=== PATIENT | female | born 2000 | race Asian ===

== ENCOUNTER 2022-02-04 11:36 | Emergency (ER) | payer OTHER, SELFPAY ==
[2022-02-04 11:38] VITALS: BP 111/73; PULSE 95; RESP 16; TEMP 35.6; O2SAT 99; BMI 17.6
--- NOTE | 2022-02-04 12:02 | ED_ITS ---
HPI - General Adult General Chief complaint: Neuro Symptoms/Altered Deficit Stated complaint: Had symptoms of a mini stroke this morning Time Seen by Provider: 02/04/22 11:48 History of Present Illness HPI narrative: This 21-year-old female comes in reporting brief episode of feeling weakness and tingling in her left upper extremity. She also had some altered sensation in her leg. This occurred upon awakening this morning. Within a few minutes her symptoms resolved. She states that she did have headache that occurred afterwards that was also rather brief. She does not report a history of migraines. She is not on any medications. She is otherwise in good health and feels back to normal currently. She called the nurse line and was instructed to come here for evaluation. She states that she is a student in college and reports that her sleep habits have been poor lately. She also reports some anxiety symptoms. Related Data Home Medications Medication Instructions Recorded Confirmed No Known Home Medications 02/04/22 02/04/22 Allergies Allergy/AdvReac Type Severity Reaction Status Date / Time No Known Drug Allergies Allergy Verified 02/04/22 11:46 Review of Systems Status of ROS: Reports: 10 or more systems reviewed and unremarkable except as noted in History and below Narrative: Constitutional: No fevers, no weight gain or loss. Eyes: No discharge. No vision changes. HENT: No congestion, no sore throat, no ear pain. Cardiovascular: No chest pain, no palpitations. Respiratory: No shortness of breath, no wheezes, no cough. Gastrointestinal: No abdominal pain, no vomiting, no diarrhea. Genitourinary: No dysuria, no hematuria. Musculoskeletal: Normal range of motion. Skin: No rashes, no pruritis. Neurological: No dizziness, speech change. She reports brief weakness in her left upper extremity with decreased sensation. There is also decreased sensation in her lower extremity briefly. Endo/Heme/Allergies: No bruising or bleeding. No polydipsia. Pysch: no suicidality, no anxiety, no insomnia. All other systems reviewed and are negative. Exam Narrative: Exam Narrative: Constitutional: Well-developed, well-nourished, no acute distress. HEENT: Normocephalic, atraumatic. Neck: Normal range of motion. Nontender. Supple. Heart: Regular. No murmurs. Normal rate. Intact distal pulses. Lungs: Clear to auscultation. No chest discomfort. No wheezes, rhonchi, or rales. Abdomen: Normal bowel sounds. Nontender. No rebound tenderness. Genitalia: Deferred. Back: No midline tenderness. Normal range of motion. Extremities: Normal range of motion. No injury. Skin: Intact. No rash. Warm. No erythema or pallor. Neurologic: No altered sensation. No weakness. Alert and oriented. No facial asymmetry. Tongue is midline. [id number] is normal. No pronator drift. She is ambulating and speaking normally. Psychiatric: No suicidality. No anxiety or depression. No insomnia. Nursing notes and vitals signs are reviewed. Const: Vital Signs, click to edit/add: Vital Signs - 24 hr 02/04/22 11:38 Temperature 96.1 F L Pulse Rate [Right Pulse Oximeter] 95 Respiratory Rate 16 Blood Pressure [Ri ght Upper Arm] 111/73 Pulse Oximetry 99 Oxygen Delivery Me thod Room Air Course Vital Signs Vital signs: Initial Vital Signs Temperature 96.1 F L 02/04/22 11:38 Temperature Source Temporal Artery Scan 02/04/22 11:38 Pulse Rate 95 02/04/22 11:38 Respiratory Rate 16 02/04/22 11:38 Blood Pressure 111/73 02/04/22 11:38 Blood Pressure Mean 85 02/04/22 11:38 Blood Pressure Position Sitting 02/04/22 11:38 Pulse Oximetry 99 02/04/22 11:38 Oxygen Delivery Method 02/04/22 11:38 Vital Signs Temperature 96.1 F L 02/04/22 11:38 Pulse Rate 95 02/04/22 11:38 Respiratory Rate 16 02/04/22 11:38 Blood Pressure 111/73 02/04/22 11:38 Pulse Oximetry 99 02/04/22 11:38 Oxygen Delivery Method 02/04/22 11:38 Temperature 96.1 F L 02/04/22 11:38 Pulse Rate 95 02/04/22 11:38 Respiratory Rate 16 02/04/22 11:38 Blood Pressure 111/73 02/04/22 11:38 Pulse Oximetry 99 02/04/22 11:38 Oxygen Delivery Method 02/04/22 11:38 Medical Decision Making MDM Narrative Medical decision making narrative: This patient comes in with rather brief symptoms as described above. She has a completely normal exam and feels back to normal at this time. I did discuss various causes of symptoms like this including stroke, TIA, complicated migraine, and nerve impingement. It seems more likely that this is not something that is worrisome. Her symptoms are completely back to normal. She may have had some basal spasm that caused temporary symptoms on her left side as described above. She did have a brief headache following these symptoms which could be typical of a migraine syndrome. Discharge Plan Discharge Clinical Impression: Migraine syndrome Patient Disposition: Home, Self-Care Condition: Improved Additional Instructions: Continue current plans. Follow up with MD or return if worsening or recurrent symptoms happening. Prescriptions: No Action No Known Home Medications Follow Up/Referrals: Provider,Not a Local [Primary Care Provider] - Stand Alone Forms: [employer] Info Instructions
== END 2022-02-04 13:05 | disposition home or self-care (01) ==
PROVIDERS: Emergency Provider Emergency Medicine Emergency Medical Services
DX: G43.909 Migraine, unspecified, not intractable, without status migrainosus (principal)
CPT/HCPCS: 99283; 99284

== ENCOUNTER 2022-08-04 11:36 | Outpatient (CLI) | payer OTHER, SELFPAY | END 2022-08-04 11:37 | disposition home or self-care (01) | LOC: AMB 08-06 12:47 | PROVIDERS: Visit Provider Family Medicine | DX: R10.9 Unspecified abdominal pain (principal); R30.0 Dysuria | CPT/HCPCS: A0425; A0427 ==

== ENCOUNTER 2022-08-04 12:04 | Emergency (ER) | payer OTHER, SELFPAY ==
[2022-08-04 12:14] VITALS: BP 104/74; PULSE 66; RESP 16; TEMP 36.3; O2SAT 100; BMI 17.5
[2022-08-04] MEDS: 0.9 % SODIUM CHLORIDE 1000 ml 1,000 ML IV (13:09)
[2022-08-04 13:16] LABS: Basophils Absolute Auto 0.05 K/uL (0.00-0.30); Basophils Percent Auto 0.5 % (0.0-3.0); Eosinophils Absolute Auto 0.09 K/uL (0.00-0.50); Hematocrit 36.5 % (33.0-51.0); Hemoglobin* 12.1 gm/dL (12.0-16.0); Immature Granulocytes Abs Auto 0.01 K/uL (0.00-0.30); Immature Granulocytes Pct Auto 0.1 %; Lymphocytes Percent Auto 8.9 % (20-44); Mean Corpuscular HGB Conc 33 gm/dL (32-36); Mean Corpuscular Hemoglobin 30 pg (26-34); Mean Corpuscular Volume 90 fL (80-100); Monocytes Percent Auto 3.8 % (0.0-11.0); Neutrophils Percent Auto 85.7 % (42.0-72.0); Platelet Count* 283 K/uL (140-440); Red Blood Count 4.04 m/uL (4.00-5.20); White Blood Count* 9.44 K/uL (4.50-11.00)
[2022-08-04 13:26] LABS: Slide Review Reflex No
[2022-08-04 13:29] LABS: Albumin* 4.3 g/dL (3.3-5.0); Chloride* 108 mmol/L (96-114)
[2022-08-04 13:30] LABS: Potassium* 3.9 mmol/L (3.6-5.1); Sodium* 137 mmol/L (135-149)
[2022-08-04 13:32] LABS: Bilirubin Direct* 0.2 mg/dL (0.0-0.5); Bilirubin Total* 0.5 mg/dL (0.1-1.5); Carbon Dioxide* 21 mmol/L (20-32); Creatinine* 0.4 mg/dL (0.5-1.5); Est. Creatinine Clearance* 168.68; Estimated Glomerular Filt Rate 145 ml/min; Total Protein* 7.2 g/dL (6.0-8.3)
[2022-08-04 13:33] LABS: Alanine Aminotransferase* 23 U/L (4-35); Alkaline Phosphatase* 45 U/L (40-150); Aspartate Amino Transferase* 24 U/L (12-35); Blood Urea Nitrogen* 10 mg/dL (5-24); Glucose* 91 mg/dL (60-115); Lipase* 34 U/L (23-300)
--- NOTE | 2022-08-04 14:03 | ED_ITS ---
HPI - Abdominal Pain General Date Seen: 08/04/22 Chief Complaint: Abdominal Pain Stated Complaint: Abdominal pain Time Seen by Provider: 08/04/22 12:13 Source: patient and EMS Mode of arrival: EMS Limitations: no limitations History of Present Illness HPI narrative: Patient is a 21-year-old female, who is a [employer] student, presents here with acute onset of lower abdominal discomfort, the came on this morning around 9:00 a.m.. Doubles her over, she just laid down in the bathroom, she describes pain that was in her lower abdominal region, a feeling that she might vomit, and nausea but she never did. She did feel that she would be able to get up, be seen after public safety was called, and she came by ambulance for to see is here, no fevers no chills no diarrhea, she says she feels like she may have some burning when she urinates but really has not urinated since. Denies any back pain, any previous history of significant abdominal issues, or hospitalizations or surgeries. She is on no chronic medications, no known allergies. The ambulance did give her some ODT Zofran on route, which she has received nothing else. MD elicited complaint: abdominal pain Pertinent past history: none Onset (ago): hour(s) Pain Consistency: constant Location: suprapubic Severity: moderate Quality: cramping and fullness Radiation: none Migration to: no migration Exacerbating factors: nothing Related Data Date of last menstrual period: 07/17/22 Patient : No Home Medications Medication Instructions Recorded Confirmed No Known Home Medications 02/04/22 02/04/22 Allergies Allergy/AdvReac Type Severity Reaction Status Date / Time No Known Drug Allergies Allergy Verified 02/04/22 11:46 Review of Systems Status of ROS Reports: 10 or more systems reviewed and unremarkable except as noted in History and below PFSH PFS Social History Smoking Status: Never smoker Do you use any of these nicotine containing products: None Second hand tobacco smoke exposure: No How often do you have a drink containing alcohol: never AUDIT-C Alcohol total score: 0 Non-prescribed substance use: denies use service: No Exam Narrative: Exam Narrative: Patient is seen in room 7, she is in no apparent distress, able to get up and ambulate normally. Her pupils equal round reactive to light there is no scleral icterus redness, TMs are normal oropharynx normal, neck is supple full range of motion, chest is clear bilaterally with no wheezing crackles noted heart sounds are normal her abdomen is soft, in the upper area she has some mild tenderness noted over suprapubic right and left areas. Of her lower abdomen. There is no radiation, normal bowel sounds nor organomegaly. Skin reveals no rashes she moves all extremities independently and well. Const: Vital Signs, click to edit/add: Vital Signs - 24 hr 08/04/22 12:14 Temperature 97.3 F L Pulse Rate [Pulse Oximeter] 66 Respiratory Rate 16 Blood Pressure [Le ft Upper Arm] 104/74 Pulse Oximetry 100 Oxygen Delivery Me thod Room Air Documenting provider has reviewed patient's vital signs: yes Course Course Hospital Course: I discussed with her that we will get a urine, give her some fluids, I will do some laboratory tests, to rule out some issues, we will base further testing on these. And her response to treatment. She was comfortable with this plan. Reevaluation(s) Reevaluation #1: Re-evaluation shows absolutely no pain in her lower abdominal region when I press on it, subsequently the patient has got her period, she wonders if that is the reason she had her discomfort. I explained to her that all her laboratory tests were reasonable, at this point I would not into worse pursuing this further with further imaging, but left it open for her she feels she wants to get a CT scan, after our discussion and shared decision-making she decided to take a wait and see approach, which I do not think is unreasonable. We went over the signs and symptoms of worsening, and she is agreement to return if these occur. Time: 15:09 Vital Signs Vital signs: Initial Vital Signs Temperature 97.3 F L 08/04/22 12:14 Temperature Source Temporal Artery Scan 08/04/22 12:14 Pulse Rate 66 08/04/22 12:14 Respiratory Rate 16 08/04/22 12:14 Blood Pressure 104/74 08/04/22 12:14 Blood Pressure Mean 84 08/04/22 12:14 Pulse Oximetry 100 08/04/22 12:14 Oxygen Delivery Method Room Air 08/04/22 12:14 Vital Signs Temperature 97.3 F L 08/04/22 12:14 Pulse Rate 66 08/04/22 12:14 Respiratory Rate 16 08/04/22 12:14 Blood Pressure 104/74 08/04/22 12:14 Pulse Oximetry 100 08/04/22 12:14 Oxygen Delivery Method Room Air 08/04/22 12:14 Temperature 97.3 F L 08/04/22 12:14 Pulse Rate 66 08/04/22 12:14 Respiratory Rate 16 08/04/22 12:14 Blood Pressure 104/74 08/04/22 12:14 Pulse Oximetry 100 08/04/22 12:14 Oxygen Delivery Method Room Air 08/04/22 12:14 MDM - Abdominal Pain MDM Narrative Medical decision making narrative: During the evaluation of this patient I considered multiple differential diagnosis including life-threatening differentials which are appendicitis, aortic aneurysm, mesenteric ischemia, bowel perforation, ectopic , volvulus and bowel obstruction, other differential diagnosis include but are not limited to inflammatory bowel disease, cholecystitis, pancreatitis, hepatitis, gastritis, GERD, diverticulitis, peptic ulcer disease, pyelonephritis/UTI, renal colic/stone, pelvic inflammatory disease, cervicitis, endometritis, intrauterine , dysfunctional uterine bleeding, ovarian cyst/torsion, spontaneous as well as other etiologies Lab Data Labs: Lab Results 08/04/22 08/04/22 Range/Units 13:00 14:00 WBC 9.44 (4.50-11.00) K/uL RBC 4.04 (4.00-5.20) m/uL Hgb 12.1 (12.0-16.0) gm/dL Hct 36.5 (33.0-51.0) % MCV 90 (80-100) fL MCH 30 (26-34) pg MCHC 33 (32-36) gm/dL RDW Coeff of Nisreen 12.0 (11.5-15.5) % Plt Count 283 (140-440) K/uL Neut % (Auto) 85.7 H (42.0-72.0) % Lymph % (Auto) 8.9 L (20-44) % [place] % (Auto) 3.8 (0.0-11.0) % Eos % (Auto) 1.0 (0.0-7.0) % Baso % (Auto) 0.5 (0.0-3.0) % Neut # (Auto) 8.10 H (1.7-7.0) K/uL Lymph # (Auto) 0.80 L (0.90-2.90) K/uL [place] # (Auto) 0.40 (0.00-0.90) K/UL Eos # (Auto) 0.09 (0.00-0.50) K/uL Baso # (Auto) 0.05 (0.00-0.30) K/uL Sodium 137 (135-149) mmol/L Potassium 3.9 (3.6-5.1) mmol/L Chloride 108 (96-114) mmol/L Carbon Dioxide 21 (20-32) mmol/L BUN 10 (5-24) mg/dL Creatinine 0.4 L (0.5-1.5) mg/dL Estimated Creat Clear 168.68 Estimated GFR 145 ml/min Glucose 91 (60-115) mg/dL Calcium 9.0 (8.4-10.6) mg/dL Total Bilirubin 0.5 (0.1-1.5) mg/dL Direct Bilirubin 0.2 (0.0-0.5) mg/dL AST 24 (12-35) U/L ALT 23 (4-35) U/L Alkaline Phosphatase 45 (40-150) U/L Total Protein 7.2 (6.0-8.3) g/dL Albumin 4.3 (3.3-5.0) g/dL Lipase 34 (23-300) U/L HCG, Qual Negative (Negative) Urine Color Yellow (Yellow) Urine Appearance Clear (Clear) Urine pH 6.5 (5.0-8.5) Ur Specific [place] 1.015 (1.000-1.030) Urine Protein Negative (Negative) Urine Glucose (UA) Negative (Negative) Urine Ketones Negative (Negative) Urine Blood 2+ A (Negative) Urine Nitrite Negative (Negative) Urine Bilirubin Negative (Negative) Urine Urobilinogen 0.2 (0.2-1.0) Ur Leukocyte Esterase Negative (Negative) Urine RBC 2-5 A (0-2) Urine WBC 0-2 (0-5) Ur Squamous Epith Cells Few (None-Few) Urine Bacteria Few A (None) Discharge Plan Discharge Clinical Impression: Menorrhagia, Abdominal pain Patient Disposition: Home, Self-Care Condition: Improved Instructions: Abdominal Pain (ED), Menorrhagia (ED) Additional Instructions: Home, rest, use of ibuprofen 600 mg every 8 hours, see how it goes low threshold for returning here if ongoing pain involving the lower abdomen, fevers chills nausea vomiting. For re-evaluation. Activity Level: No Restrictions Prescriptions: No Action No Known Home Medications Follow Up/Referrals: Provider,Not a Local [Primary Care Provider] - Stand Alone Forms: [employer] Info Instructions
[2022-08-04 14:20] LABS: Appearance Urine Clear (Clear); Bilirubin Urine Negative (Negative); Blood Urine 2+ (Negative); Color Urine Yellow (Yellow); Glucose Urine Negative (Negative); Ketones Urine Negative (Negative); Leukocyte Esterase Urine Negative (Negative); Nitrite Urine Negative (Negative); Protein Urine Negative (Negative); Specific Gravity Urine 1.015 (1.000-1.030); Urobilinogen Urine 0.2 (0.2-1.0); pH Urine 6.5 (5.0-8.5)
[2022-08-04 14:39] LABS: HCG Qualitative* Negative (Negative)
[2022-08-04 14:51] LABS: Squamous Epithelial Cell Urine Few (None-Few); WBC Urine 0-2 (0-5)
[2022-08-04 14:52] LABS: Bacteria Urine Few
== END 2022-08-04 16:16 | disposition home or self-care (01) ==
PROVIDERS: Emergency Provider Family Medicine
DX: N92.0 Excessive and frequent menstruation with regular cycle (principal); R10.30 Lower abdominal pain, unspecified
CPT/HCPCS: 36415; 80048; 80076; 81001; 83690; 84703; 85025; 87086; 96360; 96361; 99283; 99284; J7030

== ENCOUNTER 2023-07-22 11:38 | Outpatient (CLI) | payer BC, SELFPAY ==
--- OUTSIDE RECORDS SUMMARY | 2023-07-28 07:50 | XMS_ITS | Clinical Summary ---
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, EUS with 2 pigtail stents placed Family History Medical History Relation Comments Colitis Neg Hx Crohn's Disease Neg Hx Gallstones Neg Hx Social History Tobacco Use Types Packs/Day Years Used Date Smoking Tobacco: Never Assessed Sex and Gender Information Value Date Recorded Sex Assigned at Not on file Gender Identity Not on file Sexual Orientation Not on file Last Filed Vital Signs Vital Sign Reading Time Taken Comments Blood Pressure 99/58 02/03/2009 1:09 PM CDT Pulse 72 02/03/2009 1:09 PM CDT Temperature 36.6 ??C (97.9 ??F) 02/03/2009 1:09 PM CD T Respiratory Rate 16 02/03/2009 1:09 PM CDT Oxygen Saturation - - Inhaled Oxygen Concentration - - Weight 20.1 kg (44 lb 5 oz) 02/03/2009 1:09 PM C DT Height 123.9 cm (4' 0.78) 02/03/2009 1:09 PM CD T Body Mass Index 13.09 02/03/2009 1:09 PM CDT Plan of Treatment Health Maintenance Due Date Last Done Comments SARS-COV-2 (COVID) VACCINE (2022-24 season) 2022 Care Teams Insole Toe Snipping Machine Operator Relationship Specialty Start Date End Date Daniela Stovall MD [address] [place] [address] PCP - General 03/25/08 Daniela Stovall MD [address] [place], [place] [id number] PCP - Insured 02/01/09
== END 2023-07-22 11:39 | disposition home or self-care (01) ==
LOC: AMB 07-28 07:48
PROVIDERS: Visit Provider Family Medicine
DX: R11.2 Nausea with vomiting, unspecified (principal)
CPT/HCPCS: A0998

== ENCOUNTER 2024-02-03 22:14 | Emergency (ER) | payer BC, SELFPAY ==
--- OUTSIDE RECORDS SUMMARY | 2024-02-03 22:18 | XMS_ITS | Clinical Summary ---
Author Organization [facility] Address [facility] [place] [address] Phone Care Team Providers Care Gum Worker Name Role Phone Shirley Bell MD Primary Care Provider [phone] Allergies No known active allergies Medications Medication Sig Dispensed Refills Start Date End Date Status venlafaxine (EFFEXOR-XR) 150 mg 24 hr capsuleIndications:anxi ety with depression Take 150 mg by mouth daily. Active Active Problems Problem Noted Date Diagnosed Date Pancreatic pseudocyst 06/02/2008 Overview (05/07/2018): Overview: Due to handlebar injury, EUS with 2 pigtail stents placed Family History Medical History Relation Name Comments Arthritis Father No Known Problems Mother Relation Name Status Comments Father Alive Maternal Grandfather Maternal Grandmother Alive Mother Alive Paternal Grandfather Paternal Grandmother Social History Tobacco Use Types Packs/Day Years Used Date Smoking Tobacco: Never Smokeless Tobacco: Never Tobacco Cessation:Counseling Given: No Alcohol Use Standard Drinks/Week Comments No 0 (1 standard drink = 0.6 oz pur e alcohol) Sex and Gender Information Value Date Recorded Sex Assigned at Not on file Gender Identity Not on file Sexual Orientation Not on file Last Filed Vital Signs Vital Sign Reading Time Taken Comments Blood Pressure 90/60 10/21/2019 5:44 PM CDT Pulse 100 10/21/2019 5:44 PM CDT Temperature 36.6 ??C (97.8 ??F) 10/21/2019 5:44 PM CD T Respiratory Rate - - Oxygen Saturation 98% 10/21/2019 5:44 PM CDT Inhaled Oxygen Concentration - - Weight 44.4 kg (97 lb 12.8 oz) 10/21/2019 5:44 P M CDT Height 165.7 cm (5' 5.25) 10/21/2019 5:44 PM CD T Body Mass Index 16.15 10/21/2019 5:44 PM CDT Plan of Treatment Health Maintenance Due Date Last Done Comments Pap Smear 2022 Annual BMI Screening 04/22/2023 10/21/2019 Annual Blood Pressure Screening 04/22/2023 10/21/2019 Annual Depression Screening 04/22/2023 07/0 04/2019, 05/07/2018 Influenza 11/21/2023 Pneumococcal Vaccine: Pediatrics (0 to 5 Years) and At-Risk Patients (6 to 64 Years) Aged Out No longer eligible b ased on patient's age to complete this topic Care Teams Gum Worker Relationship Specialty Start Date End Date Shirley Bell MD [address] [place] [address] [address] [facility] [[email or web address]] [address] [place] [address] PCP - General Family Medicine 05/07/18
--- OUTSIDE RECORDS SUMMARY | 2024-02-03 22:18 | XMS_ITS | Referral Summary ---
Author Organization [facility] Address [address] [place] [address] Care Team Providers Care Hspt Tutor Name Role Phone Unavailable Primary Care Provider Unavailabl e Social History Tobacco Use Types Packs/Day Years Used Date Smoking Tobacco: Never Assessed Intimate Partner Violence Answer Date R ecorded Abused Not on file 10/25/2023 Sex and Gender Information Value Date Recorded Sex Assigned at Not on file Gender Identity Not on file Sexual Orientation Not on file Plan of Treatment Not on file
--- OUTSIDE RECORDS SUMMARY | 2024-02-03 22:18 | XMS_ITS | Encounter Summary ---
Author Organization [facility] Address [address] [place] [address] Care Team Providers Care Meter Attendant Name Role Phone Unavailable Primary Care Provider Unavailabl e Reason for Visit * Reason Onset Date Comments Trauma 10/25/2023 Encounter Details Date Type Department Care Team (Late st Contact Info) Description 10/25/2023 Nurse Triage CALL [facility] [address] [place] [address] Saira Bay, RN Social History Tobacco Use Types Packs/Day Years Used Date Smoking Tobacco: Never Assessed Intimate Partner Violence Answer Date R ecorded Abused Not on file 10/25/2023 Sex and Gender Information Value Date Recorded Sex Assigned at Not on file Gender Identity Not on file Sexual Orientation Not on file documented as of this encounter Miscellaneous Notes * Telephone Encounter - Saira Bay, RN - 10/25/2023 11:16 PM CDT General Health information given regarding: Caller requesting to speak with VIP regarding her relationship. Denies abuse or sexual assault at this time. Call back if you develop new or worsening symptoms documented in this encounter Plan of Treatment Not on file documented as of this encounter Visit Diagnoses Not on filedocumented in this encounter
--- OUTSIDE RECORDS SUMMARY | 2024-02-03 22:18 | XMS_ITS | Clinical Summary ---
Author Organization [facility] Address [address] [place] [address] Care Team Providers Care Derrick Helper Name Role Phone Unavailable Primary Care Provider Unavailabl e Social History Tobacco Use Types Packs/Day Years Used Date Smoking Tobacco: Never Assessed Intimate Partner Violence Answer Date R ecorded Abused Not on file 10/25/2023 Sex and Gender Information Value Date Recorded Sex Assigned at Not on file Gender Identity Not on file Sexual Orientation Not on file Plan of Treatment Health Maintenance Due Date Last Done Comments Pap / HPV Test 2001 HIV Screening 2014 VARICELLA VACCINES (1 of 2 - 13+ 2-dose series) 2014 DTaP,Tdap,and Td Vaccines (1 - Tdap) 2020 COVID-19 Vaccine ( - 2023-2 5 season) 2023 Flu Vaccine (#1) 12/22/2023 Pneumococcal Vaccine: Pediat rics (0 to 5 Years) and At-Risk Patients (6 to 64 Years) Aged Out No longer eligi ble based on patient's age to complete this topic
--- OUTSIDE RECORDS SUMMARY | 2024-02-03 22:18 | XMS_ITS | Clinical Summary ---
Author Organization [facility] Address [address] [place] [address] Care Team Providers Care Wound Care Nurse Name Role Phone Daniela Stovall MD Primary Care Provider [phone] Daniela Stovall MD Unavailable [phone] Allergies No known active allergies Medications No known medications Active Problems Problem Noted Date Diagnosed Date Pancreatic pseudocyst 06/02/2008 Overview (06/02/2008): Due to handlebar injury, EUS with 2 [...] Date Last Done Comments SARS-COV-2 (COVID) VACCINE ( season) 2023 Care Teams Wound Care Nurse Relationship Specialty Start Date End Date Daniela Stovall MD [address] [place] [address] PCP - General 03/25/08 Daniela Stovall MD [address] [place] [address] PCP - Insured 02/01/09
[2024-02-03 22:30] VITALS: BP 102/67; PULSE 113; RESP 16; TEMP 36.9; O2SAT 96; BMI 18.3
--- NOTE | 2024-02-03 22:49 | ED_ITS ---
HPI - General Adult General Date Seen: 02/03/24 Chief complaint: Fever Stated complaint: Fever, abdominal pain, body aches Time Seen by Provider: 02/03/24 22:43 History of Present Illness HPI narrative: 23-year-old female presenting to the ER today with fever associated with headache, chills, nausea. No cough. No sore throat. She did at home COVID test and that was negative. She presents to the ER today with her boyfriend who help supplement her history. She started developing symptoms Saturday evening into Saturday morning. She does note that she has been fairly anhedonic for the past few weeks and has mostly been staying around home, not wanting to go out and see friends and mostly not going to classes. However she is still passing her course work. She had her boyfriend were out for dinner and to go to an event on Saturday night. On Saturday morning she started to feel feverish and chilled. Along with this she had headache. Most notably her headache was sore when she was sitting up better when she laid down. She felt just general fatigue as well. No nasal congestion. No sore throat. No cough. She did take some Tylenol for her headache yesterday and felt better. Today on Saturday she had ongoing intermittent fever and chills. She still has headache. Mild nausea. She has been able to drink plenty of fluids today. Nausea developed this afternoon after she ate a fairly large amount of food trying to keep her energy. She has not had any Tylenol or ibuprofen today. Urination has been normal. Bowel movements have been normal without diarrhea. No cough. No shortness of breath. No rash. No known ill exposures. In review of prior medical records, She was seen here in the ER in July 2022 for abdominal pain and vaginal bleeding workup was normal. Urinalysis negative. Not . White cell count 9.4, hemoglobin 12.1. Related Data Home Medications ?Medication ?Instructions ?Recorded ?Confirmed No Known Home Medications 02/04/22 02/04/22 Allergies Allergy/AdvReac Type Severity Reaction Status Date / Time No Known Drug Allergies Allergy Verified 02/04/22 11:46 PFSH PFSH Social History Smoking Status: Never smoker Do you use any of these nicotine containing products: None Second hand tobacco smoke exposure: No How often do you have a drink containing alcohol: never AUDIT-C Alcohol total score: 0 Non-prescribed substance use: denies use service: No Exam Narrative: Exam Narrative: Constitutional: Appears well-developed and well-nourished. Alert. Conversant. Non toxic. HENT: Head: Atraumatic. Nose: Nose normal. Right ear: Mastoid, pinna, canal, TM normal. Left ear: Mastoid, pinna, canal, TM normal. Mouth/Throat: Oral mucosa is clear and moist. no trismus. Pharynx normal. Tonsils symmetric. No tonsillar enlargement, erythema, or exudate. Eyes: Conjunctivae normal. EOM normal. Pupils equal, round, and reactive to light. No scleral icterus. Neck: Normal range of motion. Neck supple. No tracheal deviation present. Cardiovascular: Normal rate, regular rhythm. No gallop. No friction rub. No murmur heard. Symmetric radial artery pulses Pulmonary/Chest: Effort normal. No stridor. No respiratory distress. No wheezes. No rales. No rhonchi . No tenderness. Abdominal: Soft. Bowel sounds normal. No distension. No mass. No tenderness. No rebound. No guarding. Musculoskeletal: RUE: Normal range of motion. No tenderness. No deformity LUE: Normal range of motion. No tenderness. No deformity RLE: Normal range of motion. No edema. No tenderness. No deformity LLE: Normal range of motion. No edema. No tenderness. No deformity Lymph: No cervical adenopathy. Neurological: Alert and oriented to person, place, and time. Normal strength. CN II-VII intact. No sensory deficit. GCS eye subscore is 4. GCS verbal subscore is 5. GCS motor subscore is 6. Normal coordination Skin: Skin is warm and dry. No rash noted. No pallor. Normal capillary refill. Psychiatric: Normal mood. Normal affect. Const: Vital Signs, click to edit/add: Vital Signs - 24 hr 02/03/24 22:30 02/03/24 23:41 Temperature 98.4 F 98 F Pulse Rate [Pulse Oximeter] 113 H Respiratory Rate 16 18 Blood Pressure [Ri ght Upper Arm] 102/67 Pulse Oximetry 96 96 Oxygen Delivery Me thod Room Air Room Air Course Course ED Course: Recheck-feeling better after Zofran. No longer mild nausea. Repeat abdominal exam is still benign. No tenderness. No guarding or rebound. Headache better after ibuprofen. Still mildly present with sitting up but otherwise normal. No neck stiffness. Normal lateral rotation and flexion/extension. Vital Signs Vital signs: Initial Vital Signs Temperature 98.4 F 02/03/24 22:30 Temperature Source Temporal Artery Scan 02/03/24 22:30 Pulse Rate 113 H 02/03/24 22:30 Respiratory Rate 16 02/03/24 22:30 Blood Pressure 102/67 02/03/24 22:30 Blood Pressure Mean 78 02/03/24 22:30 Blood Pressure Position Sitting 02/03/24 22:30 Pulse Oximetry 96 02/03/24 22:30 Oxygen Delivery Method Room Air 02/03/24 22:30 Vital Signs Temperature 98.4 F 02/03/24 22:30 Pulse Rate 113 H 02/03/24 22:30 Respiratory Rate 16 02/03/24 22:30 Blood Pressure 102/67 02/03/24 22:30 Pulse Oximetry 96 02/03/24 22:30 Oxygen Delivery Method Room Air 02/03/24 22:30 Temperature 98 F 02/03/24 23:41 Pulse Rate 113 H 02/03/24 22:30 Respiratory Rate 18 02/03/24 23:41 Blood Pressure 102/67 02/03/24 22:30 Pulse Oximetry 96 02/03/24 23:41 Oxygen Delivery Method Room Air 02/03/24 23:41 Medications Administered Medications: Discontinued Medications Generic Name Dose Route Start Last Admin Trade Name Freq PRN Reason Stop Dose Admin Ibuprofen 600 mg 02/03/24 23:14 02/03/24 23:30 Ibuprofen 600 Mg Tablet PO 02/03/24 23:15 600 mg ONCE ONE Administration Ondansetron HCl 4 mg 02/03/24 23:14 02/03/24 23:30 Ondansetron Odt 4 Mg Tab PO 02/03/24 23:15 4 mg ONCE ONE Administration Medical Decision Making [facility] Narrative Medical decision making narrative: Child presents for evaluation of fever, associated with fatigue, body aches, headache, nausea. Differential is broad. No classic rash to suggest viral syndrome. No evidence for OM on exam. No pharyngitis. Differential for fever included cellulitis, septic arthritis, osteomyelitis but these are not seen on exam. Lungs are clear and no significant cough, so I doubt pneumonia. Abdominal exam is benign, appendicitis/colitis/ i ntra-abdominal source for fever is unlikely. The patient is smiling, alert, sitting up, and non-toxic, so I do not think sepsis or meningitis is present. She has good neck range of motion at this point I think the likelihood for bacterial meningitis is very low. The risk associated with lumbar puncture would outweigh the benefit based on current presentation. UA is normal, and urine Cx is pending in the lab. At this point the patient is non-toxic, well appearing. This fever is likely due to viral illness. Plan of care includes supportive care with antipyretics, fluids, and watchful waiting at home. Instructions to return for recheck in 1-2 days if not improved, or immediately if worsening fever, decreasing oral intake, worsening headache, lethargy, seizure, new symptoms, or any other concerns. Lab Data Labs: Lab Results 02/03/24 02/04/24 Range/Units 22:39 00:04 Urine Color Yellow (Yellow) Urine Appearance Clear (Clear) Urine pH 7.0 (5.0-8.5) Ur Specific [place] 1.010 (1.000-1.030) Urine Protein Negative (Negative) Urine Glucose (UA) Negative (Negative) Urine Ketones Negative (Negative) Urine Blood Negative (Negative) Urine Nitrite Negative (Negative) Urine Bilirubin Negative (Negative) Urine Urobilinogen 0.2 (0.2-1.0) Ur Leukocyte Esterase Trace A (Negative) Urine RBC 0-2 (0-2) Urine WBC 0-2 (0-5) Ur Squamous Epith Cells Few (None-Few) Urine Bacteria Few A (None) Urine HCG, Qual Negative (Negative) SARS-CoV-2 (PCR) Negative SARS-CoV-2 (Negative) Influenza Type A (PCR) Negative PCR FLU A (Negative) Influenza Type B (PCR) Negative PCR FLU B (Negative) RSV (PCR) Negative PCR RSV (Negative) Discharge Plan Discharge Clinical Impression: Fever Patient Disposition: Home, Self-Care Condition: Stable Instructions: Fever in Adults (ED) Additional Instructions: As we discussed, please see your doctor for recheck within 1-2 days if you are not feeling better. If you have worsening symptoms, especially high fever, worsening headache or neck stiffness, uncontrolled nausea vomiting, worsening abdominal pain, please come back to the ER right away to be rechecked. Prescriptions: No Action No Known Home Medications Follow Up/Referrals: Provider,Not a Local [Primary Care Provider] - Stand Alone Forms: [email or web address] Info Instructions
--- OUTSIDE RECORDS SUMMARY | 2024-02-03 23:26 | XMS_ITS | Clinical Summary ---
Author Organization [facility] Address [address] [place] [address] Care Team Providers Care Clinical Sales Consultant Name Role Phone Daniela Stovall MD Primary Care Provider [phone] Daniela Stovall MD Unavailable [phone] Allergies No known active allergies Medications No [...] (COVID) VACCINE ( season) 2023 Care Teams Clinical Sales Consultant Relationship Specialty Start Date End Date Daniela Stovall MD [address] [place] [address] PCP - General 03/25/08 Daniela Stovall MD [address] [place] [address] PCP - Insured 02/01/09
--- OUTSIDE RECORDS SUMMARY | 2024-02-03 23:26 | XMS_ITS | Clinical Summary ---
Author Organization [facility] Address [address] [place] [address] Phone Care Team Providers Care Certified Medical Records Coder Name Role Phone Shirley Bell MD Primary Care Provider [phone] Allergies No known active allergies Medications Medication [...] age to complete this topic Care Teams Certified Medical Records Coder Relationship Specialty Start Date End Date Shirley Bell MD [address] [place] [address] [address] [facility] [address] [place] [address] PCP - General Family Medicine 05/07/18
--- OUTSIDE RECORDS SUMMARY | 2024-02-03 23:26 | XMS_ITS | Referral Summary ---
Author Organization [facility] Address [address] [place] [address] Care Team Providers Care Neonatal Doctor Name Role Phone Unavailable Primary Care Provider [...]
--- OUTSIDE RECORDS SUMMARY | 2024-02-03 23:26 | XMS_ITS | Clinical Summary ---
Author Organization [facility] Address [address] [place] [address] Care Team Providers Care Take Away Worker Name Role Phone Unavailable Primary Care Provider [...]
--- OUTSIDE RECORDS SUMMARY | 2024-02-03 23:26 | XMS_ITS | Encounter Summary ---
Author Organization [facility] Address [address] [place] [address] Care Team Providers Care Deflector Operator Name Role Phone Unavailable Primary Care Provider Unavailabl e Reason for Visit * Reason Onset Date Comments Trauma 10/25/2023 Encounter Details Date Type Department Care Team (Late st Contact Info) Description 10/25/2023 Nurse Triage [facility] [address] [place] [address] Saira Bay, RN Social History Tobacco Use [...]
[2024-02-03] MEDS: ONDANSETRON ODT 4 MG TAB PO (23:30)
[2024-02-03] MEDS: IBUPROFEN 600 MG TABLET PO (23:30)
[2024-02-03 23:41] VITALS: RESP 18; TEMP 36.6; O2SAT 96
[2024-02-03 23:43] LABS: PCR FLU A Negative PCR FLU A (Negative); PCR FLU B Negative PCR FLU B (Negative); PCR RSV Negative PCR RSV (Negative); SARS PCR* Negative SARS-CoV-2 (Negative)
[2024-02-04 00:13] LABS: Appearance Urine Clear (Clear); Bilirubin Urine Negative (Negative); Blood Urine Negative (Negative); Color Urine Yellow (Yellow); Glucose Urine Negative (Negative); Ketones Urine Negative (Negative); Leukocyte Esterase Urine Trace (Negative); Nitrite Urine Negative (Negative); Protein Urine Negative (Negative); Urobilinogen Urine 0.2 (0.2-1.0)
[2024-02-04 00:45] LABS: Bacteria Urine Few; RBC Urine 0-2 (0-2); Squamous Epithelial Cell Urine Few (None-Few); Ur HCG Qualitative* Negative (Negative); WBC Urine 0-2 (0-5)
== END 2024-02-04 01:28 | disposition home or self-care (01) ==
PROVIDERS: Emergency Provider Emergency Medicine
DX: R50.9 Fever, unspecified (principal)
CPT/HCPCS: 81001; 81025; 87086; 87631; 99283; A9270